=== PATIENT | male | born 1990 | race African-American/Black ===

== ENCOUNTER 2018-01-11 08:38 | Emergency (ER) | payer SELFPAY ==
[~2018-01-11] VITALS: Ht 190.5 cm; Wt 88.6 kg
[2018-01-11 09:04] VITALS: Ht 190.5 cm; Wt 88.6 kg
[2018-01-11] MEDS ORDERED: FLUTICASONE PRO16 GM NASAL (10:21)
[2018-01-11] MEDS ORDERED: MUCINEX DM ER1 EAC1 PO (10:21)
[2018-01-11 10:24] VITALS: BP 116/84
== END 2018-01-11 10:25 | disposition home or self-care (01) ==
LOC: D.ER 08:38
DX: J06.9 Acute upper respiratory infection, unspecified (principal); R05 Cough; R50.9 Fever, unspecified; F17.200 Nicotine dependence, unspecified, uncomplicated

== ENCOUNTER 2020-07-22 13:26 | Emergency (ER) | payer SELFPAY ==
[~2020-07-22] VITALS: Ht 190.5 cm; Wt 88.6 kg
[~2020-07-22 13:26] MED LIST: FLUTICASONE PRO16 GM NASAL; MUCINEX DM ER1 EAC1 PO
[2020-07-22 13:39] VITALS: BP 111/61; Ht 190.5 cm; Wt 88.6 kg
== END 2020-07-22 15:55 | disposition left against medical advice (07) ==
LOC: D.ER 13:26
DX: J02.9 Acute pharyngitis, unspecified (principal); R50.9 Fever, unspecified

== ENCOUNTER 2020-07-23 11:27 | Emergency (ER) | payer SELFPAY ==
[~2020-07-23] VITALS: Ht 190.5 cm; Wt 88.6 kg
[2020-07-23 11:49] VITALS: Ht 190.5 cm; Wt 88.6 kg
[2020-07-23 13:41] VITALS: BP 104/70
== END 2020-07-23 13:42 | disposition home or self-care (01) ==
LOC: D.ER 11:27
DX: J02.8 Acute pharyngitis due to other specified organisms (principal); J45.909 Unspecified asthma, uncomplicated; Z72.0 Tobacco use